=== PATIENT | male | born 1940 | race Caucasian/White ===

== ENCOUNTER 2024-07-08 07:25 | Outpatient (REF) | payer MEDICARE, SELFPAY ==
[2024-07-08 08:33] LABS: Anion Gap 12 (12-20); Blood Urea Nitrogen 18 mg/dL (9-16); Calcium 9.1 mg/dL (8.4-10.2); Carbon Dioxide 24 mmol/L (22-29); Chloride 111 mmol/L (96-108); Erythrocyte Sedimentation Rate 6 MM/HR (0-15); Estimated Glomerular Filt Rate 59; Glucose Fasting 98 mg/dL (60-99); Potassium 4.1 mmol/L (3.3-5.1); Sodium 143 mmol/L (135-145)
[2024-07-08 08:56] LABS: Vitamin B12 373 pg/mL (200-900)
[2024-07-08 10:59] LABS: Syphilis Screen Nonreactive (Nonreactive)
[2024-07-11 13:22] LABS: Lyme Abs Screen <0.90 index
[2024-07-11 22:23] LABS: IgA 233 mg/dL (70-320); IgG 1221 mg/dL (600-1540); IgM 101 mg/dL (50-300)
== END 2024-07-08 07:26 | disposition home or self-care (01) ==
LOC: HO.LAB 07:25
PROVIDERS: PCP Internal Medicine; Visit Provider Psychiatry & Neurology Neurology
DX: G62.9 Polyneuropathy, unspecified (principal); G20.A1 Parkinson's disease without dyskinesia, without mention of fluctuations
CPT/HCPCS: 36415; 80048; 82085; 82550; 82607; 82784; 85652; 86334; 86617; 86618; 86780

== ENCOUNTER 2024-08-15 09:51 | Outpatient (REF) | payer MEDICARE, SELFPAY ==
[2024-08-16 11:00] LABS: Prolactin 3.7 ng/mL (2.0-18.0)
== END 2024-08-15 09:52 | disposition home or self-care (01) ==
LOC: HO.LAB 09:51
PROVIDERS: PCP Internal Medicine; Visit Provider Psychiatry & Neurology Neurology
DX: D35.2 Benign neoplasm of pituitary gland (principal)
CPT/HCPCS: 36415; 84146

== ENCOUNTER 2025-02-23 08:21 | Outpatient (AMB) | payer MEDICARE, SELFPAY ==
--- NOTE | 2025-02-23 08:23 | A.OFFVIS_ITS ---
Intake Visit Reasons: 6 months f/u Allergies No Known Allergies Allergy (Verified 02/21/25 08:40) Medication List - Last Reconciled 02/23/25 by Mary Zayas MD carbidopa-levodopa 25-100 mg 1 tab PO QID cimetidine 300 mg PO BEDTIME clopidogrel 75 mg PO DAILY desloratadine 5 mg PO DAILY fluticasone propion-salmeterol 250-50 mcg/dose (Wixela Inhub) inhalation hydrocortisone mg PO HPI Comments Details: 84 yo LH man Parkinson disease. He was initially seen in Jun (who probably was diagnosed with a pituitary adenoma in 1988, which was treated with radiation. He was referred for tremor, difficulty walking, and stiffness for a year or more. Slowly it was getting worse. He has not been falling. He was having difficulty getting in and out of car, sitting and getting up, dressing and undressing, and putting and taking off shoes. His memory was not as good. Bladder control was ok. He was not kicking or shouting during sleep. He also had EMG nerve conduction study at [facility] and was scheduled to have left ulnar release surgery. Apparently, as per report, there was no evidence of diffuse neuropathy though looking at the date of EMG nerve conduction study that seems not to be the case.) He was doing all right and taking for carbidopa/levodopa 25/100 pills a day, at 07:00, 11:00, 15:00, and bedtime which frequently was at 19:00. He was not having any significant side-effects or hallucinations. He was walking without any assistance or cane. 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 HEENT:?No headache, vision changes, hearing loss, nasal congestion, sore throat. Neurological:?No dizziness, syncope, seizures, numbness, tingling, weakness, tremors, memory loss. Psychiatric:?No anxiety, depression, mood swings, sleep disturbance, or hallucinations. Endocrine:?No heat/cold intolerance, polydipsia, polyuria, or hair/skin changes. Hematologic/Lymphatic:?No easy bruising, bleeding, or lymphadenopathy. Integumentary (Skin):?No rash, lesions, itching, or color changes. ? Physical Exam Neuro Other: Mental Status: Alert and oriented to person, place, and time. Normal attention. Normal spontaneous speech, fluency, and comprehension. No obvious issues with mood and memory. Affect is appropriate. Cranial Nerves: CN II: Visual miner full to confrontation, visual acuity intact. CN III, IV, : Pupils equal, round, reactive to light and accommodation. Extraocular movements are normal. CN V: Facial sensation is normal. CN VII: Facial movements symmetrical. CN VIII: Hearing intact to bedside conversation is normal. CN IX, X: Palate elevates symmetrically. CN XI: Shoulder shrug and head turn symmetrical. CN XII: Tongue midline without atrophy or fasciculations. Gait and Station: No obvious gait abnormality. No ataxia or instability. Extrapyramidal: Decreased facial expression blinking. Moderate generalize more so of right side bradykinesia with mild right hand pill rolling tremor. Speech: Normal; no dysarthria or tremor. Assessment & Plan Assessment & Plan (1) Pituitary adenoma: Comment: He was seeing a doctor at [facility] for this condition. 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 Code(s): G20.A1 - Parkinson's disease without dyskinesia, without mention of fluctuations Category: Medical Qualifiers: Dyskinesia presence: without dyskinesia Fluctuating manifestations: with fluctuating manifestations Qualified Code(s): G20.A2 - Parkinson's disease without dyskinesia, with fluctuations Plan Impression:84 years old man with Parkinson's disease affecting right side more than left with EDSS score of 2 and no significant side effects from medicine. Recommendations: Carbidopa/levodopa 25/100 one at 07:00, 11:00, 15:00, and 19 :00 or bedtime. For now he was satisfied with response to medicine and same dose was continued. He is advised to stay active and tried to walk and exercise regularly, which helps. Medications: New carbidopa-levodopa 25-100 mg 1 tab PO QID 360 tabs 1RF carbidopa-levodopa 25-100 mg 1 tab PO QID 360 tabs 1RF Coding Level of Care Code Est Pt Level 4 (79477) Diagnoses Pituitary adenoma D35.2 Parkinson's disease without dyskinesia, with fluctuating manifestations G20.A2 Dyskinesia presence: without dyskinesia Fluctuating manifestations: with fluctuating manifestations
== END 2025-02-23 08:42 | disposition home or self-care (01) ==
LOC: HO.HSM 08:22
PROVIDERS: PCP Internal Medicine; Visit Provider Psychiatry & Neurology Neurology
DX: D35.2 Benign neoplasm of pituitary gland (principal); G20.A2 Parkinson's disease without dyskinesia, with fluctuations
CPT/HCPCS: 99214

== ENCOUNTER → 2025-02-23 08:21 | Outpatient (BNVA) | payer MEDICARE, SELFPAY | PROVIDERS: PCP Internal Medicine; Visit Provider Psychiatry & Neurology Neurology | DX: G20.A2 Parkinson's disease without dyskinesia, with fluctuations (principal); D35.2 Benign neoplasm of pituitary gland; Z79.51 Long term (current) use of inhaled steroids; Z79.899 Other long term (current) drug therapy | CPT/HCPCS: 99212 ==